=== PATIENT | female | born 1950 | race Caucasian/White ===

== ENCOUNTER → 2016-08-06 | Outpatient (CLI) | payer MEDICARE, OTHER ==
--- NOTE | 2016-08-07 13:11 | MM ---
Reason for exam: screening (asymptomatic). Last mammogram was performed 1 year and 11 months ago. History: Patient is postmenopausal. Physical Findings: A clinical breast exam by your physician is recommended on an annual basis and results should be correlated with mammographic findings. MG 3D Screening Mammo W/Cad Bilateral CC and MLO view(s) were taken. Prior study comparison: September 14, 2014, bilateral MG screening mammo w CAD. There are scattered fibroglandular densities. No significant changes when compared with prior studies. ASSESSMENT: Benign, BI-RAD 2 RECOMMENDATION: Routine screening mammogram of both breasts in 1 year.
== END | disposition home or self-care (01) ==
LOC: RADMAMWWP 10:42
PROVIDERS: ATTEND Family Medicine
DX: Z12.31 Encounter for screening mammogram for malignant neoplasm of breast (principal)
CPT/HCPCS: 77063; G0202

== ENCOUNTER → 2017-10-28 | Outpatient (CLI) | payer MEDICARE, OTHER ==
--- NOTE | 2017-10-29 14:11 | MM ---
Reason for exam: screening (asymptomatic). Last mammogram was performed 1 year and 3 months ago. History: Patient is postmenopausal. Physical Findings: A clinical breast exam by your physician is recommended on an annual basis and results should be correlated with mammographic findings. MG 3D Screening Mammo W/Cad Bilateral CC and MLO view(s) were taken. Prior study comparison: August 06, 2016, bilateral MG 3d screening mammo w/cad. September 14, 2014, bilateral MG screening mammo w CAD. There are scattered fibroglandular densities. Asymmetric breast tissue in the right breast anterior position, stable. There is no discrete abnormality. ASSESSMENT: Negative, BI-RAD 1 RECOMMENDATION: Routine screening mammogram of both breasts in 1 year.
== END | disposition home or self-care (01) ==
LOC: RADMAMWWP 11:12
PROVIDERS: ATTEND Family Medicine
DX: Z12.31 Encounter for screening mammogram for malignant neoplasm of breast (principal)
CPT/HCPCS: 77063; 77067

== ENCOUNTER → 2018-12-09 | Outpatient (CLI) | payer MEDICARE, OTHER ==
--- NOTE | 2018-12-09 14:17 | BD ---
EXAMINATION TYPE: Axial Bone Density DATE OF EXAM: 12/09/2018 COMPARISON: NONE CLINICAL HISTORY: Osteoporosis. Postmenopausal female. Height: 4 FT 11 1/2 IN Weight: 127 FRAX RISK QUESTIONS: History of Fracture in Adulthood: YES Secondary Osteoporosis: Current Tobacco Use: YES RISK FACTORS HISTORY OF: Postmenopausal woman: PART HYST AGE 36 Take estrogen and/or progesterone medications: USED THE PATCH FOR ABOUT A YEAR AROUND THE AGE OF 50 Lost more than 2 inches in height since high school: YES MEDICATIONS: Additional Medications: SINUS SPRAY Additional History: EXAM MEASUREMENTS: Bone mineral densitometry was performed using the [employer] System. Bone mineral density as measured about the Lumbar spine is: ----- L1-L4(G/cm2): 0.435 T Score Values are as follows: ----- L2: -6.5 ----- L3: -6.3 ----- L4: -6.2 ----- L1-L4: -6.2 BASELINE Bone mineral density about the R hip (g/cm2): 0.860 Bone mineral density about the L hip (g/cm2): 0.773 T Score values are as follows: -----R Neck: -1.3 -----L Neck: -1.9 -----R Total: -1.4 -----L Total: -1.9 BASELINE IMPRESSION: Osteopenia (T Score between -2.5 and -1). There is slightly increased risk of fracture and the patient may be considered for treatment. Re-Screen 2-5 years. NOTE: T-SCORE=SD OF THE YOUNG ADULT MEAN.
--- NOTE | 2018-12-10 12:02 | MM ---
Reason for exam: screening (asymptomatic). Last mammogram was performed 1 year and 1 month ago. History: Patient is postmenopausal. Physical Findings: A clinical breast exam by your physician is recommended on an annual basis and results should be correlated with mammographic findings. MG 3D Screening Mammo W/Cad Bilateral CC and MLO view(s) were taken. Prior study comparison: October 28, 2017, bilateral MG 3d screening mammo w/cad. August 06, 2016, bilateral MG 3d screening mammo w/cad. There are scattered fibroglandular densities. Benign appearing calcifications in the right breast. No significant changes when compared with prior studies. ASSESSMENT: Benign, BI-RAD 2 RECOMMENDATION: Routine screening mammogram of both breasts in 1 year.
== END | disposition home or self-care (01) ==
LOC: RADMAMWWP 10:49
PROVIDERS: ATTEND Family Medicine
DX: Z12.31 Encounter for screening mammogram for malignant neoplasm of breast (principal); Z13.820 Encounter for screening for osteoporosis; M85.80 Other specified disorders of bone density and structure, unspecified site
CPT/HCPCS: 77063; 77067; 77080

== ENCOUNTER → 2021-07-04 | Outpatient (CLI) | payer MEDICARE, OTHER ==
[2021-07-04 13:51] VITALS: BP 152/69; PULSE 75; RESP 16; TEMP 98
--- NOTE | 2021-07-04 13:53 | P.CON ---
Consult Note - . Consult date: 07/04/21 Assessment/Plan:: HISTORY OF PRESENT ILLNESS: 71 yr old female as a referral from Dr Duque presents today with lower back pain due to disc bulges, moderate to severe spinal stenosis, left neuroforaminal stenoses and facet arthropathy for evaluation. She states her pain level waxes and wanes in intensity throughout the day but is currently 9 out of 10, dull, achy in the lower aspects of her lumbar spine where her tailbone is located and radiation of sharp, shooting, burning pain to the right upper part of her hip. Pain is provoked with standing for periods of 10 minutes or walking for periods of 5 minutes. Just states that due to pain, she has a forward hunched walking gait. He states she is unable to extend her spine due to pain. Pain is relieved with medications, topicals, heating pad use, massage, hot showers, repositioning and rest. PMH: HTN, OA, PVD, OP, MDD, Seasonal Allergies PSH: Appendectomy, tonsillectomy, laparoscopic partial hysterectomy, vaginal tumor resection (1978) SH: As a for tobacco use. No EtOH or illicit drug use. FH: Noncontributory All: See list Meds: See list REVIEW OF ORGAN SYSTEMS: CONSTITUTIONAL: No fevers or chills. No recent weight loss. HEENT: No visual acuity loss, eye pain, difficulties with hearing. No nosebleeds. No difficulty swallowing. RESPIRATORY: Denies any troubles with breathing or dyspnea on exertion. CARDIOVASCULAR: Denies any chest pain, palpitations, or recent heart attacks. GASTROINTESTINAL: Denies fatty food intolerance. Has change in bowel habits and gas bloat. GENITOURINARY: Denies any blood in urine. Has increased urinary frequency. NEUROLOGICAL: + numbness and tingling along the distal extremities. No seizure disorders or headaches. MUSCULOSKELETAL: + back pain SKIN: No skin cancer. No rash. PSYCHIATRIC: Denies current depression or suicidal thoughts. ENDOCRINE: Denies current thyroid disorders. Denies any blood sugar glucose intolerance. HEME/LYMPHATIC: Denies any lumps and bumps around the neck. History of deep venous thrombosis. ALLERGY/IMMUNOLOGY: No immunoglobulin therapy. No immune deficiencies. BREAST: Denies current breast lumps, pain or nipple discharge. Physical Examinations : Constitutional : Cooperative , not in acute distress . HEENT: Neck supple. No Lymphadenopathy. Normal thyroid size . Eyes no ptosis , no icterus, no photophobia . Hearing intact. Normal oropharynx. No Thrush. Respiratory : Chest clear to auscultations bilaterally. No wheezing. No rhonchi. Cardiovascular : Regular rate and rhythm , S1 / S2. No S3 . No S4. Gastrointestinal : Abdomen soft. No tenderness. Bowel sounds x 4. No organomegaly . Genitourinary : Deferred. Neurologic : Cranial nerve II to XII intact. No focal neurological deficits. Psychiatric : alert & oriented x 3. Matching mood & appropriate affect. Judgment & insight intact. Lymphatic No Lymphadenopathy. Musculoskeletal : Cervical Spine Motor strength in the deltoid and biceps: Normal right side. Normal Left side Motor strength biceps and the wrist extensors: Normal right side . Normal left side Motor strength in the triceps muscle: Normal right side. Normal left side Deep tendon reflexes: Normal at the biceps. Normal at Brachioradialis. Normal at triceps Cervical facet loading test: positive bilaterally Spurling test: positive bilaterally Neck distraction test: positive bilaterally Toyin sign: positive bilaterally Lumbar spine Motor strength lower extremities ,thigh and legs 5/5 Right side , 5/5 Left side Deep tendon reflexes : Normal Knee Jerk. Normal Ankle Jerk Vertebral body tenderness over L4, L5 with jump reflex and right sided paraspinal muscle spasms Lumbar facet Loading Test: positive Right / positive Left Range of motion of the lumbar spine Flexion 30 degrees, extension 10 degrees Straight Leg Raise test: Left/ Right positive at 30 degree Geovani test: positive right / positive left. Severe tenderness over the Sacroiliac joint on the Right / Left sides Gaenslen test: positive bilaterally Seated flexion test: positive bilaterally. Assessment/ Plan : Mentation of LESI of the L4-L5. May need a series of 3, within a six-month period, to obtain optimal pain relief. Risks, benefits of procedure discussed and patient verbalized understanding. Denies anti- coagulant use. All questions answered. I have spent greater than 50 minutes on patient care today. Dr Marcum was available by phone for the evaluation of this patient. The time was used to review the medical records including relevant urine studies and Prescription history (MAPs), review of the available imaging, evaluation and examination of the patient, coordination of care with the medical staff and if applicable referring physicians, as well as creation of the medical record PQRS Measure Charge Sheet Mode of Arrival: Ambulatory - Pain Location Right Lower Back Non-Pharmacological Interventions: Heat, Inactivity, Sitting, Standing Pharmacological Interventions: Medication PQRS Narrative: Blood Pressure 152/69 Pain Intensity [Right Lower 9 Back] Scale Used Numeric (1 - 10) Hx Alcohol Use (MH) No
== END ==
LOC: PNWHC3 13:09
PROVIDERS: ATTEND Physician Assistant Medical
DX: M54.50 Low back pain, unspecified (principal); M46.1 Sacroiliitis, not elsewhere classified; M25.551 Pain in right hip; I10 Essential (primary) hypertension; M19.90 Unspecified osteoarthritis, unspecified site; F17.200 Nicotine dependence, unspecified, uncomplicated; Z79.899 Other long term (current) drug therapy; Z88.2 Allergy status to sulfonamides; Z88.5 Allergy status to narcotic agent; Z88.6 Allergy status to analgesic agent; Z88.0 Allergy status to penicillin; Z91.018 Allergy to other foods
CPT/HCPCS: 99211

== ENCOUNTER 2024-10-25 13:12 | Day surgery (SDC) | payer MEDICARE, OTHER ==
[2024-10-25 13:54] VITALS: RESP 16; TEMP 98
[2024-10-25 14:47] VITALS: BP 134/57; PULSE 89
--- NOTE | 2024-10-25 15:53 | US ---
EXAMINATION TYPE: US biopsy soft tissue/muscle DATE OF EXAM: 10/25/2024 2:18 PM COMPARISON: CT outside institution CLINICAL INDICATION:Female, 74 years old with history of SOLITARY PULMONARY NODULE; , ATTENDING: Dr. Michael Moore PROCEDURE: Informed consent was obtained. The risks and benefits of the procedure were discussed with the patien t. The site was marked. Timeout procedure was performed Ultrasound imaging demonstrates a right neck mass The patient was prepped, draped in the usual sterile fashion, and locally anesthetized with 1% lidoca ine. 3 x 18-gauge core needle biopsies were obtained.. Samples were sent to the pathology department for further analysis. Patient tolerated the procedure without incident and was sent home in stable condition. IMPRESSION: Successful ultrasound guided core biopsy of the right neck mass. [facility], , 10/25/2024 3:51 PM
== END 2024-10-25 14:25 | disposition home or self-care (01) ==
LOC: RADPROMAIN 13:12
PROVIDERS: ATTEND Family Medicine
DX: R22.1 Localized swelling, mass and lump, neck (principal)
CPT/HCPCS: 20206; 76942; 88305; 88341; 88342

== ENCOUNTER → 2024-11-12 | Outpatient (CLI) | payer MEDICARE, OTHER ==
--- NOTE | 2024-11-15 21:01 | PE ---
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 Images are reviewed on the computer in the coronal, axial, and sagittal planes. Reconstructed rotating images are created on independent workstation an d reviewed on the computer. A non-contrast CT is performed in conjunction with the PET scan. Glucos e level 113 mg/dL CT DLP: 793 mGycm, Automated exposure control for dose reduction was used. COMPARISON: CT 10/13/2024, PET/CT None, MRI: None FINDINGS: Mediastinal SUV mean is 2.2. Hepatic parenchyma SUV mean is 3.0. SKULL BASE AND NECK: Mass described below. CHEST, MEDIASTINUM, AND HILAR REGION: Large neck mass extending from the mediastinum into the right low neck. Max SUV 33.63 measuring 15.4 x 7.7 x 6.7 cm this surrounds the loni the anterior mediastinum the large airways of the mediastinu m. Into the neck and surrounds multiple major vessels of the right shoulder. A couple left low neck lymph nodes are present which have mild uptake measuring up to 5 mm and max DAMON V 3.8. ABDOMEN AND PELVIS: * Focal uptake anterior to the left kidney with SUV 6.7 cm within the lymph node. * pancreatic tail with soft tissue mass measuring 21 x 23 mm Max SUV 19.5. MUSCULOSKELETAL STRUCTURES: Mass described above. OTHER CT: Atherosclerosis of the carotid bifurcations.. Trace right pleural effusion. Right hip arthr oplasty is present. IMPRESSION: 1. Large mass within the mediastinum and extending up the right neck measuring up to 15.4 cm. Additi onally there is at least 2 lymph nodes that have cross midline and are on the left medial lower neck concerning for metastatic disease. 2. Pancreatic tail mass also present measuring up to 23 x 21 mm with adjacent FDG avid lymph node. Findings communicated to Jacey Quintanilla MD on 11/15/2024 8:[address] Michael Moore. [facility], , 11/15/2024 8:59 PM
== END | disposition home or self-care (01) ==
LOC: RADPETMAIN 15:15
PROVIDERS: ATTEND Internal Medicine Hematology & Oncology
DX: C34.81 Malignant neoplasm of overlapping sites of right bronchus and lung (principal); K86.89 Other specified diseases of pancreas
CPT/HCPCS: 78815; A9552

== ENCOUNTER → 2024-11-13 | Outpatient (CLI) | payer MEDICARE, OTHER ==
--- NOTE | 2024-11-13 10:56 | MR ---
EXAMINATION TYPE: MR brain wo/w con DATE OF EXAM: 11/13/2024 10:33 AM COMPARISON: None. 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 On the T1-weighted sagittal images, the midline structures including the craniovertebral junction rel ationships appear normal. The ventricles, basal cisterns and sulci over the convexities are mildly enlarged consistent with mil d generalized atrophy. There is no mass effect or shift of the midline structures. There are mild multifocal areas of abnormal increased signal intensity on the FLAIR and T2-weighted i mages within these periventricular and subcortical white matter of both cerebral hemispheres consiste nt with mild chronic ischemic white matter change. On the diffusion weighted imaging there is no diffusion restriction or acute ischemic event. Following contrast administration, there is no pathological enhancement. Incidental note is made of a small venous angioma of the posterior left frontal lobe. The posterior fossa including the brainstem, fourth ventricle and cerebellar pontine angles appear no rmal. Intraorbital contents are normal and symmetric. Visualized paranasal sinuses and mastoid air cells ar e well aerated. IMPRESSION: 1. No evidence of metastatic disease within the brain. 2. Mild atrophy and mild chronic ischemic white matter change. 3. Incidental note is made of a small venous angioma of the posterior left frontal lobe. 4. No acute ischemic event. [facility], Workstation: [email or web address] 11/13/2024 10:53 AM
== END | disposition home or self-care (01) ==
LOC: RADMRIMAIN 09:52
PROVIDERS: ATTEND Internal Medicine Hematology & Oncology
DX: C34.91 Malignant neoplasm of unspecified part of right bronchus or lung (principal); I67.82 Cerebral ischemia; Q28.3 Other malformations of cerebral vessels
CPT/HCPCS: 70553; A9585

== ENCOUNTER 2024-11-22 14:33 | Emergency (ER) | payer MEDICARE, OTHER ==
[2024-11-22 14:51] VITALS: TEMP 98.3
--- NOTE | 2024-11-22 15:10 | ED ---
Abdominal Pain HPI - General Source: patient, RN notes reviewed Mode of arrival: EMS Limitations: no limitations - History of Present Illness MD Complaint: abdominal pain Onset/Timin -: days(s) Location: suprapubic Radiation: LLQ Severity: mild Quality: cramping Consistency: intermittent Improves With: bowel movement Context: recent surgery/procedure (Chemotherapy) Associated Symptoms: hematochezia <Fermin Rendon - Last Filed: 11/22/24 19:06> <Alejandra Bingham - Last Filed: 11/23/24 00:33> - General Chief Complaint: Abdominal Pain Stated Complaint: Blood in Stool Time Seen by Provider: 11/22/24 14:48 - History of Present Illness Initial Comments: This is a 74-year-old female with history including metastatic lung CA, heart failure and hypertension presenting via EMS with daughter for blood in stool t his morning. Patient states she was on the toilet for 40 minutes yesterday without straining with a larger amount of stool than normal yesterday. States she awoke today with lower abdominal cramping and dark red blood noted in her underwear with 5-6 bowel movements today, all blood. Endorses associated lower abdominal cramping, general fatigue and occasional blood clots. Patient endorses undergoing chemotherapy last week with [facility]. Advised to contact Dr. Quintanilla's WORKERS COMPENSATION CLAIMS ADJUSTER, as she was unable to attend her appointment today scheduled for 1544. Patient endorses occasional hemoptysis since Friday without dyspnea, chest pain, fever, chills. Denies nausea/vomiting, melena, history of diverticulitis. (Fermin Rendon) - Related Data Home Medications Medication Instructions Recorded Confirmed Atorvastatin [Lipitor] 40 mg PO DAILY 10/19/24 11/22/24 Furosemide [Lasix] 20 mg PO DAILY 10/19/24 11/22/24 Levothyroxine Sodium [Tirosint] 50 mcg PO DAILY 10/19/24 11/22/24 Sacubitril/Valsartan [Entresto 24 1 tab PO BID 10/19/24 11/22/24 mg-26 mg Tablet] Spironolactone [Aldactone] 25 mg PO DAILY 10/19/24 11/22/24 Albuterol Inhaler [Ventolin Hfa 2 puff INHALATION RT-Q6H PRN 11/22/24 11/22/24 Inhaler] HYDROcodone/APAP 7.5-325MG [Cameron 1 tab PO Q6H PRN 11/22/24 11/22/24 7.5-325] Metoprolol Succinate (ER) [Toprol 50 mg PO DAILY 11/22/24 11/22/24 Xl] OLANZapine [ZyPREXA] 2.5 mg PO HS 11/22/24 11/22/24 Ondansetron Odt [Zofran Odt] 4 - 8 mg PO Q4H PRN 11/22/24 11/22/24 Allergies Allergy/AdvReac Type Severity Reaction Status Date / Time sulfamethoxazole AdvReac Unknown Unknown Verified 11/22/24 16:20 [From Bactrim] trimethoprim [From Bactrim] AdvReac Unknown Unknown Verified 11/22/24 16:20 codeine AdvReac Unknown Verified 11/22/24 16:20 ibuprofen [From Motrin] AdvReac Unknown Verified 11/22/24 16:20 lemon eucalyptus AdvReac Rash/Hives Verified 11/22/24 16:20 [From Mosquito Eliminator] penicillin V AdvReac Unknown Verified 11/22/24 16:20 Review of Systems ROS Other: All systems not noted in ROS Statement are negative. <Fermin Rendon - Last Filed: 11/22/24 19:06> ROS Other: All systems not noted in ROS Statement are negative. <Alejandra Bingham - Last Filed: 11/23/24 00:33> ROS Statement: Those systems with pertinent positive or pertinent negative responses have been documented in the HPI. Past Medical History Past Medical History: Heart Failure, Hypertension Additional Past Medical History / Comment(s): PVD/osteoporosis History of Any Multi-Drug Resistant Organisms: None Reported Past Surgical History: Appendectomy, Joint Replacement, Tonsillectomy Additional Past Surgical History / Comment(s): partial hysterectomy/vaginal tumor removed 1978, Right hip replacement 08/2024. Past Anesthesia/Blood Transfusion Reactions: No Reported Reaction Past Psychological History: No Psychological Hx Reported Smoking Status: Former smoker Past Alcohol Use History: None Reported Past Drug Use History: None Reported - Past Family History Mother Family Medical History: Cancer, Diabetes Mellitus, Hypertension Additional Family Medical History / Comment(s): Uterine cancer Sister(s) Family Medical History: Cancer <Fermin Rendon - Last Filed: 11/22/24 19:06> General Exam Limitations: no limitations General appearance: alert, in no apparent distress Head exam: Present: atraumatic, normocephalic, normal inspection Eye exam: Present: normal appearance, PERRL, EOMI. Absent: scleral icterus, conjunctival injection, periorbital swelling ENT exam: Present: normal exam, mucous membranes moist Neck exam: Present: normal inspection. Absent: tenderness, meningismus, lymphadenopathy Respiratory exam: Present: normal lung sounds bilaterally. Absent: respiratory distress, wheezes, rales, rhonchi, stridor Cardiovascular Exam: Present: regular rate, normal rhythm, normal heart sounds. Absent: systolic murmur, diastolic murmur, rubs, gallop, clicks GI/Abdominal exam: Present: soft, tenderness (Positive suprapubic and LLQ TTP without guarding), rebound (LLQ rebound tenderness), diminished bowel sounds, hypoactive bowel sounds. Absent: distended, guarding, rigid Extremities exam: Present: normal inspection, full ROM, normal capillary refill. Absent: tenderness, pedal edema, joint swelling, calf tenderness Back exam: Present: normal inspection Neurological exam: Present: alert, oriented X3, CN II-XII intact Psychiatric exam: Present: normal affect, normal mood Skin exam: Present: warm, dry, intact, normal color. Absent: rash <Fermin Rendon - Last Filed: 11/22/24 19:06> Course Vital Signs 11/22/24 11/22/24 11/22/24 14:36 18:25 23:17 Temperature 98.3 F Pulse Rate 87 60 84 Respiratory 16 18 15 Rate Blood Pressure 116/52 130/56 122/44 O2 Sat by Pulse 95 100 97 Oximetry Medical Decision Making - Lab Data Result diagrams: 11/22/24 15:48 11/22/24 15:48 <Fermin Rendon - Last Filed: 11/22/24 19:06> - Lab Data Result diagrams: 11/22/24 20:47 11/22/24 15:48 <Alejandra Bingham - Last Filed: 11/23/24 00:33> - Medical Decision Making Was pt. sent in by a medical professional or institution (, PA, WORKERS COMPENSATION CLAIMS ADJUSTER, urgent care, hospital, or prison...) When possible be specific @ -No Did you speak to anyone other than the patient for history (EMS, parent, family, police, friend...)? What history was obtained from this source @ -Daughter provided portion of HPI Did you review nursing and triage notes (agree or disagree)? Why? @ -I reviewed and agree with nursing and triage notes Were old charts reviewed (outside hosp., previous admission, EMS record, old EKG, old radiological studies, urgent care reports/EKG's, prison records)? Report findings @ -No old charts were reviewed Differential Diagnosis (chest pain, altered mental status, abdominal pain women, abdominal pain men, vaginal bleeding, weakness, fever, dyspnea, syncope, headache, dizziness, GI bleed, back pain, seizure, CVA, palpatations, mental health, musculoskeletal)? @ -Differential GI Bleed: Esophageal varices, aortoenteric fistula, Mavis-Meier, gastritis, peptic ulcer disease, diverticulosis, inflammatory bowel disease, hemorrhoids, fissure, colitis, malignancy, Meckel's diverticulum, this is not meant to be an all- inclusive list. EKG interpreted by me (3pts min.). @ -Not done X-rays interpreted by me (1pt min.). @ -None done CT interpreted by me (1pt min.). @ -AP CT pending U/S interpreted by me (1pt. min.). @ -None done What testing was considered but not performed or refused? (CT, X-rays, U/S, labs)? Why? @ -None What meds were considered but not given or refused? Why? @ -None Did you discuss the management of the patient with other professionals (professionals i.e. , PA, WORKERS COMPENSATION CLAIMS ADJUSTER, lab, RT, psych nurse, social sciences department chair, soubrette, teacher, motorcycle police officer, correctional casework specialist)? Give summary @ -No Was smoking cessation discussed for >3mins.? @ -No Was critical care preformed (if so, how long)? @ -No Were there social determinants of health that impacted care today? How? (Homelessness, low income, unemployed, alcoholism, drug addiction, transportation, low edu. Level, literacy, decrease access to med. care, longterm, rehab)? @ -No Was there de-escalation of care discussed even if they declined (Discuss DNR or withdrawal of care, Hospice)? DNR status @ -No What co-morbidities impacted this encounter? (DM, HTN, Smoking, COPD, CAD, Cancer, CVA, ARF, Chemo, Hep., AIDS, mental health diagnosis, sleep apnea, morbid obesity)? @ -Lung CA Was patient admitted / discharged? Hospital course, mention meds given and route, prescriptions, significant lab abnormalities, going to OR and other pertinent info. @ -Patient initially provided IV normal saline. Lab work notable for WBC 4.34, sodium 129, potassium 3.0, BUN 27, glucose 126 and lipase 422. UA contaminated with moderate amount of blood. CXR shows asymmetrical thickening of the right neck responding to known mass seen on PET/CT scan extending from the mediast inum. Patient provided p.o. potassium chloride. AP CT results pending. Patient discussed and care passed to Alejandra Bingham PA-C. ([facility]) I assumed care of this patient pending the results of the CTA abdomen pelvis. I did review the patient's laboratory studies revealing a hemoglobin of 12. I rechecked this and it remained stable at 11.9. Patient received potassium chloride supplementation IV fluids prior to my assumption of care. CT of the abdomen pelvis reveals infectious/inflammatory colitis with no evidence of active bleed. The patient has had repeated episodes of hematochezia while in the emergency department. I discussed the case with general surgery, Dr. Gonzalez who recommends that the patient be transferred to a tertiary care facility for GI coverage. Attempted [facility], spoke with ER physician who reports that they are not accepting GI transfers. Also attempted [facility] who also does not have GI coverage. The patient was accepted at [facility] by Dr. Vasquez and Dr. Espinal. (Alejandra Bingham) - Lab Data Lab Results 11/22/24 11/22/24 11/22/24 Range/Units 15:48 15:48 15:48 WBC 4.34 L (4.50-10.00) 10*3/uL RBC 4.29 (4.10-5.20) 10*6/uL Hgb 12.0 (12.0-15.0) g/dL Hct 34.8 L (37.2-46.3) % MCV 81.1 (80.0-97.0) fL MCH 28.0 (27.0-32.0) pg MCHC 34.5 (32.0-37.0) g/dL Plt Count 151 (140-440) 10*3/uL MPV 9.7 (9.5-12.2) fL Immature Gran % (Auto) 11.8 % Neutrophils % 66.4 % Lymphocytes % 17.7 % Monocytes % 1.6 % Eosinophils % 0.9 % Basophils % 1.6 % Immature Gran # 0.51 H (0.00-0.04) 10*3/uL Neutrophils # 2.88 (1.80-7.70) 10*3/uL Lymphocytes # 0.77 L (0.90-5.00) 10*3/uL Monocytes # 0.07 L (0.20-1.00) 10*3/uL Eosinophils # 0.04 (0.04-0.35) 10*3/uL Basophils # 0.07 (0.00-0.10) 10*3/uL Manual Slide Review Performed PT 10.4 (10.0-12.5) sec INR 0.9 (<1.2) APTT 22.1 (22.0-30.0) sec Sodium 129 L (137-145) mmol/L Potassium 3.0 L (3.5-5.1) mmol/L Chloride 93 L (98-107) mmol/L Carbon Dioxide 27 (22-30) mmol/L Anion Gap 9 mmol/L BUN 27 H (7-17) mg/dL Creatinine 0.68 (0.52-1.04) mg/dL Est GFR (CKD-EPI)AfAm >90 (>60 ml/min/1.73 sqM) Est GFR (CKD-EPI)NonAf 86 (>60 ml/min/1.73 sqM) Glucose 126 H (74-99) mg/dL Plasma Lactic Acid German (0.7-2.0) mmol/L Calcium 8.7 (8.4-10.2) mg/dL Magnesium 1.8 (1.6-2.3) mg/dL Total Bilirubin 0.9 (0.2-1.3) mg/dL AST 28 (14-36) U/L ALT 36 H (4-34) U/L Alkaline Phosphatase 94 (38-126) U/L Total Protein 6.0 L (6.3-8.2) g/dL Albumin 3.7 (3.5-5.0) g/dL Lipase 422 H (23-300) U/L Urine Color Urine Appearance (Clear) Urine pH (5.0-8.0) Ur Specific Nicasio (1.001-1.035) Urine Protein (Negative) Urine Glucose (UA) (Negative) Urine Ketones (Negative) Urine Blood (Negative) Urine Nitrite (Negative) Urine Bilirubin (Negative) Urine Urobilinogen (<2.0) mg/dL Ur Leukocyte Esterase (Negative) Urine RBC (0-5) /hpf Urine WBC (0-5) /hpf Ur Squamous Epith Cells (0-4) /hpf Hyaline Casts (0-2) /lpf Urine Mucus (None) /hpf 11/22/24 11/22/24 11/22/24 Range/Units 16:30 20:47 20:47 WBC 3.50 L (4.50-10.00) 10*3/uL RBC 4.26 (4.10-5.20) 10*6/uL Hgb 11.9 L (12.0-15.0) g/dL Hct 34.9 L (37.2-46.3) % MCV 81.9 (80.0-97.0) fL MCH 27.9 (27.0-32.0) pg MCHC 34.1 (32.0-37.0) g/dL Plt Count 144 (140-440) 10*3/uL MPV 9.4 L (9.5-12.2) fL Immature Gran % (Auto) % Neutrophils % % Lymphocytes % % Monocytes % % Eosinophils % % Basophils % % Immature Gran # (0.00-0.04) 10*3/uL Neutrophils # (1.80-7.70) 10*3/uL Lymphocytes # (0.90-5.00) 10*3/uL Monocytes # (0.20-1.00) 10*3/uL Eosinophils # (0.04-0.35) 10*3/uL Basophils # (0.00-0.10) 10*3/uL Manual Slide Review PT (10.0-12.5) sec INR (<1.2) APTT (22.0-30.0) sec Sodium (137-145) mmol/L Potassium (3.5-5.1) mmol/L Chloride (98-107) mmol/L Carbon Dioxide (22-30) mmol/L Anion Gap mmol/L BUN (7-17) mg/dL Creatinine (0.52-1.04) mg/dL Est GFR (CKD-EPI)AfAm (>60 ml/min/1.73 sqM) Est GFR (CKD-EPI)NonAf (>60 ml/min/1.73 sqM) Glucose (74-99) mg/dL Plasma Lactic Acid German 1.7 (0.7-2.0) mmol/L Calcium (8.4-10.2) mg/dL Magnesium (1.6-2.3) mg/dL Total Bilirubin (0.2-1.3) mg/dL AST (14-36) U/L ALT (4-34) U/L Alkaline Phosphatase (38-126) U/L Total Protein (6.3-8.2) g/dL Albumin (3.5-5.0) g/dL Lipase (23-300) U/L Urine Color Yellow Urine Appearance Cloudy H (Clear) Urine pH 5.5 (5.0-8.0) Ur Specific Nicasio 1.026 (1.001-1.035) Urine Protein Trace H (Negative) Urine Glucose (UA) Negative (Negative) Urine Ketones Negative (Negative) Urine Blood Moderate H (Negative) Urine Nitrite Negative (Negative) Urine Bilirubin Negative (Negative) Urine Urobilinogen <2.0 (<2.0) mg/dL Ur Leukocyte Esterase Large H (Negative) Urine RBC 10 H (0-5) /hpf Urine WBC 128 H (0-5) /hpf Ur Squamous Epith Cells 25 H (0-4) /hpf Hyaline Casts 7 H (0-2) /lpf Urine Mucus Moderate H (None) /hpf Disposition <Fermin Rendon - Last Filed: 11/22/24 19:06> Is patient prescribed a controlled substance at d/c from ED?: No <Alejandra Bingham - Last Filed: 11/23/24 00:33> Clinical Impression: GI bleed, Colitis Disposition: OTHER INSTITUTION NOT DEFINED Condition: Stable Referrals: McPhilimy,Peter, DO [Primary Care Provider] - 1-2 days
[2024-11-22] MEDS: SODIUM CHLORIDE 0.9% 1,000 ML IV ONE (15:45)
--- NOTE | 2024-11-22 16:54 | XR ---
EXAMINATION TYPE: XR chest 2V DATE OF EXAM: 11/22/2024 4:47 PM COMPARISON: PET CT 11/15/2024 TECHNIQUE: XR chest 2V Frontal and lateral views of the chest. CLINICAL INDICATION:Female, 74 years old with history of Hemoptysis, history of lung CA; FINDINGS: Lungs/Pleura: There is no evidence of pleural effusion, focal consolidation, or pneumothorax. Pulmonary vascularity: Unremarkable. Heart/mediastinum: Cardiomediastinal silhouette is is not enlarged. Musculoskeletal: No acute osseous pathology. Other findings: Asymmetrical thickening of the right neck soft tissues corresponding to known mass. IMPRESSION: 1. No acute cardiopulmonary disease/process. 2. Asymmetric thickening of the right neck corresponding to known mass seen on recent PET/CT which e xtends from the mediastinum. [facility], , 11/22/2024 4:52 PM
[2024-11-22 17:09] LABS: Bilirubin,Urine Negative (Negative); Blood,Urine Moderate (Negative); Color,Urine Yellow; Glucose,Urine (UA) Negative (Negative); Hyaline Casts,Urine 7 /lpf (0-2); Ketones,Urine Negative (Negative); Leukocyte Esterase,Urine Large (Negative); Mucus,Urine Moderate /hpf; Nitrite,Urine Negative (Negative); PH, Urine 5.5 (5.0-8.0); Protein,Urine Trace (Negative); RBC,Urine 10 /hpf (0-5); Specific Gravity,Urine 1.026 (1.001-1.035); Squamous Epithelial Cell,Urine 25 /hpf (0-4); Urobilinogen,Urine <2.0 mg/dL (<2.0); WBC,Urine 128 /hpf (0-5)
[2024-11-22 18:40] LABS: ALT 36 U/L (4-34); AST 28 U/L (14-36); African American GFR (CKD) >90 (>60 ml/min/1.73 sqM); Albumin 3.7 g/dL (3.5-5.0); Alkaline Phosphatase 94 U/L (38-126); Anion Gap 9 mmol/L; Blood Urea Nitrogen 27 mg/dL (7-17); Calcium 8.7 mg/dL (8.4-10.2); Carbon Dioxide 27 mmol/L (22-30); Chloride 93 mmol/L (98-107); Glucose 126 mg/dL (74-99); INR 0.9 (<1.2); Lipase 422 U/L (23-300); Magnesium 1.8 mg/dL (1.6-2.3); Non-African American GFR(CKD) 86 (>60 ml/min/1.73 sqM); Partial Thromboplastin Time 22.1 sec (22.0-30.0); Potassium 3.0 mmol/L (3.5-5.1); Prothrombin Time 10.4 sec (10.0-12.5); Sodium 129 mmol/L (137-145); Total Protein 6.0 g/dL (6.3-8.2)
[2024-11-22 18:43] LABS: Basophils # (A) 0.07 10*3/uL (0.00-0.10); Basophils % (A) 1.6 %; Eosinophils # (A) 0.04 10*3/uL (0.04-0.35); Eosinophils % (A) 0.9 %; HCT 34.8 % (37.2-46.3); HGB 12.0 g/dL (12.0-15.0); Lymphocytes # (A) 0.77 10*3/uL (0.90-5.00); Lymphocytes % (A) 17.7 %; MCH 28.0 pg (27.0-32.0); MCHC 34.5 g/dL (32.0-37.0); MCV 81.1 fL (80.0-97.0); Monocytes # (A) 0.07 10*3/uL (0.20-1.00); Monocytes % (A) 1.6 %; Neutrophils # (A) 2.88 10*3/uL (1.80-7.70); Neutrophils % (A) 66.4 %; Platelet Count 151 10*3/uL (140-440); RBC 4.29 10*6/uL (4.10-5.20); RDW 15.0 % (11.5-14.5); WBC 4.34 10*3/uL (4.50-10.00)
[2024-11-22] MEDS: POTASSIUM CHLORIDE ER 20 MEQ TAB.ER PO STA (18:58)
--- NOTE | 2024-11-22 20:02 | CT ---
EXAMINATION TYPE: CT angio abdomen pelvis CT DLP: 1337.5 mGycm, Automated exposure control for dose reduction was used. DATE OF EXAM: 11/22/2024 7:48 PM COMPARISON:PET CT 11/15/2024 CLINICAL INDICATION:Female, 74 years old with history of GI bleeding, LLQ TTP; pt. comes from home fo r rectal bleeding with clots. pt. states its loose with dark red blood. pt. c/o abdominal pain. TECHNIQUE: Multiple thin slice sub-millimeter images were obtained through the abdomen and pelvis bef ore and after administration of contrast. Patient was given Isovue 370, 100 cc intravenously. Maximu m intensity projection images were obtained of the abdomen and pelvis. FINDINGS: CTA Abdomen and pelvis: The abdominal aorta does not demonstrate aneurysmal dilatation. Atherosclero tic plaquing is identified within the abdominal aorta. The origins of the superior mesenteric artery , renal arteries, and celiac axis are patent. Severe stenosis at the origin of the celiac axis second jessica to calcified noncalcified plaque. Mild to moderate stenosis at the origin of the SMA secondary to calcified and noncalcified plaque. Moderate stenosis at the origins of the bilateral single renal ar teries secondary to calcified and noncalcified plaque. The ENRRIQUE is not definitively visualized. The bi lateral common iliac and internal and external iliac arteries are patent. Mild to moderate calcified plaque within the bilateral common iliac arteries. The bilateral common femoral arteries are widely p atent. The visualized bilateral superficial and deep femoral arteries are widely patent. VISCERA: The liver, spleen, adrenal glands, kidneys, pancreas, and gallbladder are not optimally enha nced due the arterial phase utilized. LIVER: Focal region of wedge-shaped hyperattenuation after contrast enhancement on arterial phase wit hin the segment 4 of the liver consistent with transient hepatic attenuation difference. Becomes isoa ttenuating on delayed phase. GALLBLADDER AND BILE DUCTS: Unremarkable. PANCREAS: No pancreatic ductal dilatation. Known pancreatic tail mass measures grossly 2.3 cm. This i s isoattenuating with the adjacent parenchyma on arterial phase. It is slightly hyperattenuating on d elayed phase. Demonstrated FDG activity in prior PET/CT. SPLEEN: Unremarkable. ADRENAL GLANDS: Unremarkable. KIDNEYS AND URETERS: No evidence of hydronephrosis or renal calculus. The kidneys enhance symmetrical ly. PELVIS BLADDER: Unremarkable REPRODUCTIVE: The uterus is surgically absent. ABDOMEN & PELVIS STOMACH AND BOWEL: There is hyperdense material identified within the stomach on noncontrast imaging which does not change after administration of intravenous contrast. No other hyperdense material iden tified within the bowel to suggest active GI bleed. Circumferential wall thickening with fat strandin g involving the descending colon/sigmoid colon junction. No pneumatosis. No diverticula. No evidence of bowel obstruction. PERITONEUM: No evidence of pneumoperitoneum or free fluid. VASCULATURE: No evidence of aortic aneurysm. MUSCULOSKELETAL: No acute osseous abnormalities. Postsurgical changes from right hip arthroplasty. Mi ld multilevel degenerative disc disease. No aggressive osseous lesion. LYMPH NODES: No evidence for lymphadenopathy. SOFT TISSUE/ABDOMINAL WALL: Unremarkable LOWER CHEST: Bilateral lower lobe mild subsegmental atelectasis. IMPRESSION: 1. Findings consistent with colitis involving the descending/sigmoid colon junction. Etiologies incl ude infectious/inflammatory process with ischemia not entirely excluded. No CTA evidence for active G I bleed. 2. Redemonstration of pancreatic tail mass which was FDG avid on recent PET/CT and is concerning for malignancy/metastasis. 3. Atherosclerotic disease involving abdominal aorta and branches as described above. [facility], , 11/22/2024 7:59 PM
[2024-11-22 21:04] LABS: HCT 34.9 % (37.2-46.3); HGB 11.9 g/dL (12.0-15.0); MCH 27.9 pg (27.0-32.0); MCHC 34.1 g/dL (32.0-37.0); MCV 81.9 fL (80.0-97.0); Platelet Count 144 10*3/uL (140-440); RBC 4.26 10*6/uL (4.10-5.20); RDW 14.9 % (11.5-14.5); WBC 3.50 10*3/uL (4.50-10.00)
[2024-11-22 23:18] VITALS: BP 122/44; PULSE 84; RESP 15
[2024-11-23] MEDS: MORPHINE SULFATE 2 MG/ML SYRINGE IVP STA (00:22)
== END 2024-11-23 00:59 | disposition other institution (70) ==
LOC: EC 14:33
DX: K52.9 Noninfective gastroenteritis and colitis, unspecified (principal); Z85.118 Personal history of other malignant neoplasm of bronchus and lung; Z87.891 Personal history of nicotine dependence; Z88.0 Allergy status to penicillin; Z88.2 Allergy status to sulfonamides; Z88.5 Allergy status to narcotic agent; Z88.6 Allergy status to analgesic agent; Z88.1 Allergy status to other antibiotic agents; Z88.8 Allergy status to other drugs, medicaments and biological substances
CPT/HCPCS: 99285; 96361; 96374; 36415; 80053; 83605; 83690; 83735; 85025; 85027; 85610; 85730; 81001; 87086; 71046; 74174; Q9967